=== PATIENT | male | born 1940 | race Caucasian/White ===

== ENCOUNTER 2017-10-04 19:15 | Emergency (ER) | payer MEDICARE, OTHER ==
[2017-10-04] MEDS ORDERED: Cephalexin 500 MG Cap PO ONE (20:47)
[2017-10-04] MEDS ORDERED: Diphtheria,Pertussis(Acell),Tetanus Vaccine 0.5 ML SDV IM ONE (20:47)
--- NOTE | 2017-10-04 21:43 | EDM.PDOC ---
ED HPI GENERAL MEDICAL PROBLEM - General Chief Complaint: Upper Extremity Injury/Pain Stated Complaint: SLICED HAND FINGER WHILE SKINNING DEER Time Seen by Provider: 10/04/17 20:40 Source of Information: Reports: Patient History Limitations: Reports: No Limitations - History of Present Illness INITIAL COMMENTS - FREE TEXT/NARRATIVE: Patient is 77-year-old male who was skinning a deer and acidentally cut himself on the dorsal aspect of the left hand proximal to the third MCP. Patient states he cannot extend his third finger after the injury. No sensory motor deficits distally. Bleeding controlled. Tetanus is not up-to-date. Left 3-Middle finger Pain Score (Numeric/FACES): 1 - Related Data Allergies Allergy/AdvReac Type Severity Reaction Status Date / Time No Known Allergies Allergy Verified 10/04/17 19:59 Home Meds: Home Meds Aspirin 325 mg PO DAILY 10/04/17 [History] Cephalexin [Keflex] 500 mg PO QID #40 capsule 10/04/17 [Rx] Diltiazem HCl [Cardizem] 300 mg PO DAILY 10/04/17 [History] Flecainide Acetate 100 mg PO BID 10/04/17 [History] Lisinopril 40 mg PO DAILY 10/04/17 [History] Multivitamins [Tab-A-Madhav] 1 tab PO DAILY 10/04/17 [History] Omeprazole 40 mg PO DAILY 10/04/17 [History] Past Medical History Cardiovascular History: Reports: Afib, Hypertension, Pacemaker Respiratory History: Reports: Pneumonia, Recurrent Gastrointestinal History: Reports: GERD - Past Surgical History Head Surgeries/Procedures: Reports: Other (See Below) GI Surgical History: Reports: Colonoscopy Social & Family History - Tobacco Use Smoking Status *Q: Never Smoker - Caffeine Use Caffeine Use: Reports: Coffee, Soda - Recreational Drug Use Recreational Drug Use: No Review of Systems - Review of Systems Review Of Systems: ROS reveals no pertinent complaints other than HPI. ED EXAM, GENERAL - Physical Exam Exam: See Below Exam Limited By: No Limitations General Appearance: Alert, WD/WN, No Apparent Distress Ears: Hearing Grossly Normal Nose: Normal Inspection Throat/Mouth: Normal Voice, No Airway Compromise Neck: Normal Inspection, Supple Respiratory/Chest: No Respiratory Distress, No Accessory Muscle Use Cardiovascular: Normal Peripheral Pulses, Regular Rate, Rhythm Peripheral Pulses: 2+: Radial (L) Extremities: Other (Laceration to the left 3rd mcp with minimal bleeding. unable to extend the third finger. ) Neurological: Alert, Oriented, CN II-XII Intact, Normal Cognition Psychiatric: Normal Affect, Normal Mood Skin Exam: Warm, Dry ED TRAUMA EXTREMITY PROCEDURES - Laceration/Wound Repair Left Other Lac/Wound Length In cm: 1 Appearance: Subcutaneous Distal NVT: Neuro & Vascular Intact (With extensor tendon involvement. Unable to do the full extent of injury. Suspect 100% involvement.) Anesthetic Type: Local Local Anesthesia - Lidocaine (Xylocaine): 1% Plain Local Anesthetic Volume: 4cc Skin Prep: Chlorhexidine (Hibiciens), Saline, Sterile Drape Exploration/Debridement/Repair: Wound Explored, In a Bloodless Field, Explored to Base, No Foreign Material Found Closed With: Sutures Suture Size: 4-0 # of Sutures: 1 Suture Type: Prolene, Mattress Sterile Dressing Applied: Nurse Tetanus Status Addressed: Yes Complications: No Course - Vital Signs Last Recorded V/S: Last Vital Signs Temp 98.0 F 10/04/17 19:49 Pulse 77 10/04/17 19:49 Resp 20 10/04/17 19:49 BP 144/87 H 10/04/17 19:49 Pulse Ox 92 L 10/04/17 19:49 - Orders/Labs/Meds Meds: Medications Discontinued Medications Generic Name Dose Route Start Last Admin Trade Name Tomas PRN Reason Stop Dose Admin Cephalexin 500 mg 10/04/17 20:47 10/04/17 21:02 Keflex PO 10/04/17 20:48 500 mg ONETIME ONE Administration Diphtheria/Tetanus/Acell Pertussis 0.5 ml 10/04/17 20:47 10/04/17 21:04 Adacel IM 10/04/17 20:48 0.5 ml .ONCE ONE Administration - Re-Assessments/Exams Free Text/Narrative Re-Assessment/Exam: Order Adacel, Keflex 500 mg by mouth, and x-ray of the left hand. 2142 X-ray of the left hand did not reveal any acute abnormalities. [address] Reddy radiation safety officer orthopedic surgeon at [facility] and [place]. Will see the patient on Friday morning between 8:30 and 9. Agrees with closing with simple sutures, splint, and antibiotics on discharge. Laceration closed no complications. Discharge instructions as documented. Departure - Departure Time of Disposition: 22:45 Disposition: Home, Self-Care 01 Condition: Good Clinical Impression: Laceration of hand involving extensor tendon Qualifiers: Encounter type: initial encounter Laterality: left Qualified Code(s): S61.412A - Laceration without foreign body of left hand, initial encounter - Discharge Information Prescriptions: Cephalexin [Keflex] 500 mg PO QID #40 capsule Instructions: Laceration Care, Adult, [id number] Referrals: Max Reddy Sr, MD [Physician] - Forms: ED Department Discharge Additional Instructions: Take the full course of antibiotic as prescribed. Cleanse site twice daily with soap and water, pat dry, triple antibiotics ointment, dressing, and splint. Keep area clean and dry. Do not soak wound. Go to [facility] between 0830- 0900 to be evaluated by Dr. Reddy Orthopedic Surgeon. Take ibuprofen and Tylenol as needed for discomfort. Return to the ED for any new or worsening symptoms.
--- NOTE | 2017-10-06 06:45 | CR ---
Left hand: Two views of the left hand were obtained. Comparison: No previous study. Joint space narrowing is scattered within the DIP and PIP joints. No fracture, dislocation or other bony abnormality is identified. Impression: 1. Mild degenerative change as noted above. Diagnostic code #2
== END 2017-10-04 23:03 | disposition home or self-care (01) ==
LOC: JD.ED 19:15
DX: S66.323A Laceration of extensor muscle, fascia and tendon of left middle finger at wrist and hand level, initial encounter (principal); I10 Essential (primary) hypertension; I48.91 Unspecified atrial fibrillation; K21.9 Gastro-esophageal reflux disease without esophagitis; Z79.82 Long term (current) use of aspirin; Z79.899 Other long term (current) drug therapy; Z23 Encounter for immunization; W26.0XXA Contact with knife, initial encounter
CPT/HCPCS: 12001; 73120; 90471; 90715; 99284; A9270; 99283-25